=== PATIENT | female | born 1980 | race Caucasian/White ===

== ENCOUNTER 2017-02-20 12:37 | Emergency (ER) | payer OTHER, MEDICAID ==
[~2017-02-20] VITALS: Ht 172.7 cm; Wt 101.6 kg
[2017-02-20 12:40] VITALS: BP 122/75
== END 2017-02-20 14:09 | disposition home or self-care (01) ==
LOC: ED 14:03
DX: S80.01XA Contusion of right knee, initial encounter (principal); K21.9 Gastro-esophageal reflux disease without esophagitis; W18.09XA Striking against other object with subsequent fall, initial encounter; Y93.89 Activity, other specified; Y92.89 Other specified places as the place of occurrence of the external cause; Y99.9 Unspecified external cause status
CPT/HCPCS: 99284

== ENCOUNTER 2021-06-04 15:51 | Emergency (ER) | payer MEDICARE, MEDICAID ==
[~2021-06-04] VITALS: Ht 172.7 cm; Wt 107.7 kg
[2021-06-04 16:05] VITALS: BP 126/82
== END 2021-06-04 16:35 | disposition home or self-care (01) ==
LOC: ED 16:00
DX: K02.9 Dental caries, unspecified (principal); K21.9 Gastro-esophageal reflux disease without esophagitis; F17.200 Nicotine dependence, unspecified, uncomplicated
CPT/HCPCS: 99283